=== PATIENT | male | born 1965 | race Caucasian/White ===

== ENCOUNTER → 2019-09-24 | Outpatient (CLI) | payer BC ==
--- NOTE | 2019-09-24 15:13 | CT ---
EXAM DESCRIPTION: Abdomen/Pelvis w/wo Contrast CLINICAL HISTORY: 54 years Male, rihgt lower quadrant pain COMPARISON: None available. TECHNIQUE: Contiguous 3 mm axial images were obtained from the lung bases to the level of the proximal femora before and after the administration of intravenous and oral contrast. Sagittal and coronal reconstructions were reviewed. FINDINGS: THORAX: The imaged lower thorax demonstrates no gross abnormality. LIVER: The liver demonstrates normal size and density with no intrahepatic biliary ductal dilatation or focal masses. GALLBLADDER: Grossly unremarkable. PANCREAS: Appears normal with no cystic or solid lesions. SPLEEN: Normal ADRENAL GLANDS: Normal with no nodules or masses. KIDNEYS: Both kidneys enhance symmetrically with no hydronephrosis or nephrolithiasis or perinephric fluid collections. No focal masses are identified. The visualized ureters appear grossly unremarkable. STOMACH: Mild reflux esophagitis. The stomach is not well-distended limiting detailed evaluation. SMALL BOWEL: Distal ileum leading up to the terminal ileum appears slightly prominent with mild surrounding inflammatory stranding, most likely representing focal enteritis. LARGE BOWEL: Moderate to large amount of fecal material is noted throughout the colon, consistent with constipation. The appendix is well-visualized and appears normal No evidence of free intraperitoneal air or fluid. RETROPERITONEUM: The abdominal aorta is nonaneurysmal with mild to moderate atherosclerosis. The inferior vena cava is normal in size and caliber. No abnormally enlarged retroperitoneal lymph nodes are identified. URINARY BLADDER:The urinary bladder is well-distended with no gross abnormality. The prostate gland and seminal vesicles appear normal. ADDITIONAL FINDINGS: None. BONES: Mild degenerative changes are identified in the visualized bones. Bilateral pars defects of L5 with grade 1 anterolisthesis of L5 over S1. IMPRESSION: 1. Distal ileum leading up to the terminal ileum appears slightly prominent with mild surrounding inflammatory stranding, most likely representing focal enteritis. 2. Constipation. This exam was performed according to our departmental dose-optimization program, which includes automated exposure control, adjustment of the mA and/or kV according to patient size and/or use of iterative reconstruction technique. Electronically signed by: Gisselle St MD 09/24/2019 3:11 PM CDT
== END ==
LOC: LAB.O 10:39
PROVIDERS: ATTEND Registered Nurse General Practice
DX: K59.00 Constipation, unspecified (principal); K63.9 Disease of intestine, unspecified

== ENCOUNTER → 2020-04-25 | Outpatient (CLI) | payer BC | LOC: YCFC.O 11:51 | PROVIDERS: ATTEND Family Medicine | DX: Z11.59 Encounter for screening for other viral diseases (principal); R52 Pain, unspecified ==